=== PATIENT | female | born 1975 | race Caucasian/White ===

== ENCOUNTER 2017-04-25 08:34 | Emergency (ER) | payer OTHER ==
[~2017-04-25] VITALS: Ht 157.5 cm; Wt 53.0 kg
[~2017-04-25 08:34] MED LIST: ACET-2047 PO; BENZ100C70 PO; CYCL-319 PO; GUAI-637; IBUP-1542 PO; NAPR-260 PO; PROM6.25 PO
[2017-04-25 08:44] VITALS: Ht 157.5 cm; Wt 53.0 kg
[2017-04-25] MEDS ORDERED: KETOROLAC 30 MG INJ IV STA (09:25)
[2017-04-25] MEDS ORDERED: ONDANSETRON 4 MG INJ IV STA (09:25)
[2017-04-25] MEDS ORDERED: SOD CHLORIDE 0.9% 1,000 ML IV STA (09:25)
[2017-04-25 10:20] LABS: BASOPHIL # 0.1 10^3/ul (0.0-0.1); BASOPHILS % 0.8 % (0.0-2.0); EOSINOPHILS # 0.1 10^3/ul (0.0-0.5); EOSINOPHILS % 2.1 % (0.0-7.0); HEMATOCRIT 34.2 % (37.0-47.0); HEMOGLOBIN 10.5 g/dl (12.0-16.0); LYMPHOCYTES # 2.1 10^3/ul (0.8-2.9); LYMPHOCYTES % 34.1 % (15.0-51.0); MEAN CORPUSCULAR HEMOGLOBIN 23.5 pg (29.0-33.0); MEAN CORPUSCULAR HGB CONC 30.7 g/dl (32.0-37.0); MEAN CORPUSCULAR VOLUME 76.5 fl (82.0-101.0); MEAN PLATELET VOLUME 9.5 fl (7.4-10.4); MONOCYTE # 0.4 10^3/ul (0.3-0.9); MONOCYTES % 6.6 % (0.0-11.0); NEUTROPHILS % 56.2 % (39.0-77.0); PLATELET COUNT 386 10^3/UL (140-415); RED BLOOD COUNT 4.47 10^6/ul (4.20-5.40); RED CELL DISTRIBUTION WIDTH 16.6 % (11.5-14.5); WHITE BLOOD COUNT 6.2 10^3/ul (4.8-10.8)
[2017-04-25 10:32] LABS: ADD UMIC YES; UR ASCORBIC ACID NEGATIVE (NEGATIVE); UR BILIRUBIN (Dip) NEGATIVE (NEGATIVE); UR BLOOD (Dip) 2+ mg/dL (NEGATIVE); UR CLARITY CLEAR (CLEAR); UR COLOR YELLOW (YELLOW); UR GLUCOSE (Dip) NEGATIVE (NEGATIVE); UR KETONES (Dip) NEGATIVE (NEGATIVE); UR LEUKOCYTE ESTERASE (Dip) NEGATIVE Leu/ul (NEGATIVE); UR NITRITE (Dip) NEGATIVE (NEGATIVE); UR RBC 1 /HPF (0-5); UR SPECIFIC GRAVITY (Dip) 1.013 (1.003-1.030); UR TOTAL PROTEIN (Dip) NEGATIVE (NEGATIVE); UR UROBILINOGEN (Dip) NEGATIVE (NEGATIVE)
[2017-04-25 10:37] LABS: UR BACTERIA FEW /HPF (NONE SEEN); UR MUCUS FEW /HPF (NONE SEEN)
[2017-04-25 10:38] LABS: ALBUMIN 4.5 g/dl (3.3-4.9); ALBUMIN/GLOBULIN RATIO 1.18; BILIRUBIN,INDIRECT 0.2 mg/dl (0-1.1); BILIRUBIN,TOTAL 0.2 mg/dl (0.2-1.3); CALCIUM 8.9 mg/dl (8.4-10.2); CREATININE 0.53 mg/dl (0.44-1.00); POTASSIUM 4.2 mmol/L (3.5-5.1); TOTAL PROTEIN 8.3 g/dl (6.1-8.1)
--- NOTE | 2017-04-25 11:42 | RADRPT ---
PROCEDURE: CT abdomen and pelvis without contrast. CLINICAL INDICATION: pelvic pain, hematuria TECHNIQUE: CT scan of the abdomen and pelvis without contrast was performed on a multi-slice CT [facility]. The patient was scanned without intravenous contrast. 3-D sagittal and coronal reformatted images were obtained from the axial source images. CTDI: 5.93 and DLP: 298.94 One or more of the following post reduction techniques were used: Automated exposure control. Adjustment of the mA and/or kV according to patient's size. Use of iterative reconstruction technique. COMPARISON: None. FINDINGS: Incidental images through the lung bases reveal no evidence of focal basilar consolidation or pleura l effusion. The liver, spleen, gallbladder, pancreas and adrenal glands are unremarkable for noncontrast study. The kidneys are bilaterally symmetrical without evidence of hydronephrosis. There is no evidence o f obstructive uropathy. No significant retroperitoneal adenopathy is identified. Calcified mesenteric lymph nodes are seen, likely related to previous granulomatous disease. Atherosclerotic changes are seen in the abdominal aorta without evidence of aneurysm. The stomach is grossly unremarkable. There is no evidence of small bowel obstruction, appendicitis or diverticulitis. No free fluid or free intraperitoneal air is identified. Evaluation of the osse ous structures reveals no acute change. There is a 2 cm right ovarian cyst. IMPRESSION: 1. A 2 cm right ovarian cyst is present. 2. Calcified mesenteric lymph nodes are seen, likely related to previous granulomatous disease. 3. No evidence of obstructive uropathy, appendicitis, diverticulitis or bowel obstruction. RPTAT:AAJJ Physician Hammad Date Time Electronically viewed and signed by Physician Hammad on 04/25/2017 11:42 JOSIAS/
--- NOTE | 2017-04-25 11:43 | RADRPT ---
PROCEDURE: US Pelvis. CLINICAL INDICATION: Pelvic pain, vaginal bleeding TECHNIQUE: Multiple sonographic images of the pelvis were obtained utilizing a transabdominal and endovaginal technique. The images were reviewed on a PACS workstation. COMPARISON: None. FINDINGS: The uterus is visualized and measures 3.7 x 5.1 x 6.8 cm. The endometrial echo complex is normal and measures 4.0 mm . The right ovary measures 1.6 x 1.8 x 2.8 cm The left ovary measures 1.8 x 2.5 x 2.4 cm. There is a simple cyst in the right ovary measuring 2.1 cm. There is normal vascular flow to both ovaries. No adnexal masses or free fluid is identified. IMPRESSION: 1. Simple right ovarian cyst measuring 2.1 cm. 2. Otherwise, no significant abnormalities are identified. RPTAT:AAJJ Physician Hammad Date Time Electronically viewed and signed by Physician Hammad on 04/25/2017 11:43 /
[2017-04-25] MEDS ORDERED: IBUP400T22 PO (11:58)
[2017-04-25] MEDS ORDERED: TRAM50TA2 PO (11:58)
[2017-04-25] MEDS ORDERED: FER325 PO (11:59)
--- NOTE | 2017-04-25 12:17 | ERD ---
ER Documentation Chief Complaint Date/Time DATE: 04/25/17 TIME: 12:09 Chief Complaint HEADCAHE , VOMITING , VAG BLEED X 3 DAYS HPI This is a 42-year-old female presenting to emergency department for headache, Vaginal bleeding and pelvic pain 3 days.Patient states she noticed vaginal bleeding that has gotten heavier over the last 3 days. Patient also reports pelvic pain. Patient rates pain 6/10 to suprapubic area.No back or flank pain. Patient's last menstrual period April 08, 2017. Patient has had nausea however no vomiting or diarrhea. No constipation. Patient is also had headache for the past 3 days. No weakness, change in vision, blurry vision or loss of vision. ROS All systems reviewed and are negative except as per history of present illness. Medications Home Meds Active Scripts Ferrous Sulfate* (Ferrous Sulfate*) 325 Mg Tabec, 325 MG PO DAILY, #30 TAB Prov:DIMITRIOS SIMENTAL NP 04/25/17 Tramadol HCl (Tramadol HCl) 50 Mg Tablet, 50 MG PO Q4 Y for PAIN, #20 TAB Prov:DIMITRIOS SIMENTAL NP 04/25/17 Ibuprofen* (Motrin*) 400 Mg Tab, 400 MG PO Q6, #30 TAB Prov:DIMITRIOS SIMENTAL NP 04/25/17 Cyclobenzaprine Hcl* (Cyclobenzaprine Hcl*) 10 Mg Tablet, 10 MG PO BID, #10 TAB Prov:KOKI MONCADA PA-C 05/02/16 Naproxen* (Naprosyn*) 500 Mg Tablet, 500 MG PO BID Y for PAIN AND/OR INFLAMMATION, #30 TAB Prov:KOKI MONCADA PA-C 05/02/16 Acetaminophen* (Acetaminophen*) 650 Mg Tablet, 650 MG PO Q4H Y for PAIN AND OR ELEVATED TEMP, #15 TAB Prov:CHO,PAYAM 02/01/15 Ibuprofen* (Ibuprofen*) 600 Mg Tablet, 600 MG PO Q6 for PAIN, #15 TAB Prov:CHO,PAYAM 02/01/15 Promethazine w/Codeine* (Phenergan w/Codeine* Syrup) 5 Ml Syrup, 5 ML PO Q4H Y for COUGH, #4 OZ Prov:CHO,PAYAM 02/01/15 Benzonatate* (Tessalon Perle*) 100 Mg Capsule, 200 MG PO Q8H Y for COUGH, #21 CAP Prov:DELILAH HIDALGOA 02/01/15 Reported Medications Guaifenesin* (Robitussin*) 100 Mg/5 Ml Syrup 11/03/10 Allergies Allergies: Coded Allergies: No Known Drug Allergies (Verified Allergy, Mild, 02/01/15) PMhx/Soc Medical and Surgical Hx: pt denies Surgical Hx History of Surgery: No Anesthesia Reaction: No Hx Neurological Disorder: Yes (Vertigo) Hx Respiratory Disorders: No Hx Cardiac Disorders: No Hx Psychiatric Problems: No Hx Miscellaneous Medical Probl: Yes (Pre-DM, high cholesterol, anemia) Hx Alcohol Use: No Hx Substance Use: No Hx Tobacco Use: No Physical Exam Vitals Vital Signs Date Time Temp Pulse Resp B/P Pulse Ox O2 Delivery O2 Flow Rate FiO2 04/25/17 08:44 98.5 80 18 111/59 98 Physical Exam Const: alert, no acute distress Head: Atraumatic Eyes: Normal Conjunctiva ENT: Normal External Ears, Nose and Mouth. Neck: Full range of motion..~ No meningismus. Resp: Clear to auscultation bilaterally Cardio: Regular rate and rhythm, no murmurs Abd: Soft, suprapubic tenderness, non distended. Normal bowel sounds Skin: No petechiae or rashes Back: No midline or flank tenderness. No CVA tenderness. Ext: No cyanosis, or edema Neur: Awake and alert Psych: Normal Mood and Affect Result Diagram: 04/25/17 0943 04/25/17 0943 Results 24 hrs Laboratory Tests Test 04/25/17 09:43 White Blood Count 6.210^3/ul Red Blood Count 4.4710^6/ul Hemoglobin 10.5g/dl Hematocrit 34.2% Mean Corpuscular Volume 76.5fl Mean Corpuscular Hemoglobin 23.5pg Mean Corpuscular Hemoglobin Concent 30.7g/dl Red Cell Distribution Width 16.6% Platelet Count 45993^3/UL Mean Platelet Volume 9.5fl Neutrophils % 56.2% Lymphocytes % 34.1% Monocytes % 6.6% Eosinophils % 2.1% Basophils % 0.8% Nucleated Red Blood Cells % 0.0/100WBC Neutrophils # (Manual) 3.510^3/ul Lymphocytes # 2.110^3/ul Monocytes # 0.410^3/ul Eosinophils # 0.110^3/ul Basophils # 0.110^3/ul Nucleated Red Blood Cells # 0.010^3/ul Urine Color YELLOW Urine Clarity CLEAR Urine pH 5.0 Urine Specific Arminto 1.013 Urine Ketones NEGATIVEmg/dL Urine Nitrite NEGATIVEmg/dL Urine Bilirubin NEGATIVEmg/dL Urine Urobilinogen NEGATIVEmg/dL Urine Leukocyte Esterase NEGATIVELeu/ul Urine Microscopic RBC 1/HPF Urine Microscopic WBC 1/HPF Urine Bacteria FEW/HPF Urine Mucus FEW/HPF Urine Hemoglobin 2+mg/dL Urine Glucose NEGATIVEmg/dL Urine Total Protein NEGATIVEmg/dl Sodium Level 143mmol/L Potassium Level 4.2mmol/L Chloride Level 106mmol/L Carbon Dioxide Level 24mmol/L Anion Gap 17 Blood Urea Nitrogen 7mg/dl Creatinine 0.53mg/dl Glucose Level 87mg/dl Calcium Level 8.9mg/dl Total Bilirubin 0.2mg/dl Direct Bilirubin 0.00mg/dl Indirect Bilirubin 0.2mg/dl Aspartate Amino Transf (AST/SGOT) 23IU/L Alanine Aminotransferase (ALT/SGPT) 27IU/L Alkaline Phosphatase 90IU/L Total Protein 8.3g/dl Albumin 4.5g/dl Globulin 3.80g/dl Albumin/Globulin Ratio 1.18 Lipase 104U/L Current Medications Medications (Trade) Dose Ordered Sig/Madeleine Route PRN Reason Start Time Stop Time Status Last Admin Dose Admin Sodium Chloride (NS) 1,000 ml @ 1,000 mls/hr Q1H STAT IV 04/25/17 09:25 04/25/17 10:24 DC 04/25/17 09:51 Ondansetron HCl (Zofran Inj) 4 mg ONCE STAT IV 04/25/17 09:25 04/25/17 09:27 DC 04/25/17 09:52 Ketorolac Tromethamine (Toradol) 30 mg ONCE STAT IV 04/25/17 09:25 04/25/17 09:27 DC 04/25/17 09:52 Procedures/[place] [id number] Radiology Main Line: [phone] DIAGNOSTIC IMAGING REPORT Patient: PEÑA REYNOLDS : 1975 Age: 42 Sex: F MR #: [id number] DOS: 04/25/17 0925 Ordering MD: DIMITRIOS SIMENTAL NP Location: [facility] Room/Bed: PROCEDURE: US Pelvis. CLINICAL INDICATION: Pelvic pain, vaginal bleeding TECHNIQUE: Multiple sonographic images of the pelvis were obtained utilizing a transabdominal and endovaginal technique. The images were reviewed on a PACS workstation. COMPARISON: None. FINDINGS: The uterus is visualized and measures 3.7 x 5.1 x 6.8 cm. The endometrial echo complex is normal and measures 4.0 mm . The right ovary measures 1.6 x 1.8 x 2.8 cm The left ovary measures 1.8 x 2.5 x 2.4 cm. There is a simple cyst in the right ovary measuring 2.1 cm. There is normal vascular flow to both ovaries. No adnexal masses or free fluid is identified. IMPRESSION: 1. Simple right ovarian cyst measuring 2.1 cm. 2. Otherwise, no significant abnormalities are identified. [place] [id number] Radiology Main Line: [phone] DIAGNOSTIC IMAGING REPORT Patient: PEÑA REYNOLDS : 1975 Age: 42 Sex: F MR #: [id number] DOS: 04/25/17 1034 Ordering MD: DIMITRIOS SIMENTAL NP Location: [facility] Room/Bed: PROCEDURE: CT abdomen and pelvis without contrast. CLINICAL INDICATION: pelvic pain, hematuria TECHNIQUE: CT scan of the abdomen and pelvis without contrast was performed on a multi-slice CT scanner. The patient was scanned without intravenous contrast. 3-D sagittal and coronal reformatted images were obtained from the axial source images. CTDI: 5.93 and DLP: 298.94 One or more of the following post reduction techniques were used: Automated exposure control. Adjustment of the mA and/or kV according to patient's size. Use of iterative reconstruction technique. COMPARISON: None. FINDINGS: Incidental images through the lung bases reveal no evidence of focal basilar consolidation or pleural effusion. The liver, spleen, gallbladder, pancreas and adrenal glands are unremarkable for noncontrast study. The kidneys are bilaterally symmetrical without evidence of hydronephrosis. There is no evidence of obstructive uropathy. No significant retroperitoneal adenopathy is identified. Calcified mesenteric lymph nodes are seen, likely related to previous granulomatous disease. Atherosclerotic changes are seen in the abdominal aorta without evidence of aneurysm. The stomach is grossly unremarkable. There is no evidence of small bowel obstruction, appendicitis or diverticulitis. No free fluid or free intraperitoneal air is identified. Evaluation of the osseous structures reveals no acute change. There is a 2 cm right ovarian cyst. IMPRESSION: 1. A 2 cm right ovarian cyst is present. 2. Calcified mesenteric lymph nodes are seen, likely related to previous granulomatous disease. 3. No evidence of obstructive uropathy, appendicitis, diverticulitis or bowel obstruction. MDM: This is a 42-year-old female presenting to the emergency department with pelvic pain, vaginal bleeding and headache 3 days. Patient is afebrile upon arrival to ED and vital signs are stable. CBC shows hemoglobin 10.5 otherwise unremarkable. CMP shows no significant electrolyte imbalance. Normal liver enzymes. Normal bilirubin. UA reveals 2+ Hgb otherwise negative leukocyte eserase, nitrite, ketones and bilirubin. Urine is negative. IV access obtained and patient given Toradol and Zofran via IV. Pelvic ultrasound reviewed by radiologist as simple right ovarian cyst measuring 2.1 cm. Otherwise no significant arm abnormalities are identified. CT abdomen and pelvis reviewed by radiologist as 2 cm right ovarian cyst. No evidence of obstructive uropathy, appendicitis, diverticulitis or bowel obstruction. Upon reassessment, patient states pain has improved. Differential diagnosis includes but not limited to ovarian cyst, ruptured ovarian cyst, UTI or pyelonephritis. Patient is appropriate for outpatient management. Patient will be given prescription for ibuprofen 400 mg #30, tramadol 50 mg #20 and ferrous sulfate 325 mg #30. Instructed patient to follow-up with primary care provider in the next 2-3 days for reassessment and additional management. Return to ED sooner for any high fever, chest pain, difficulty breathing, shortness breath, wheezing , vomiting, diarrhea, abdominal pain or any new or worsening symptoms. Patient verbalizes understanding. All questions answered at discharge. Departure Diagnosis: Primary Impression: Ovarian cyst Laterality: right Qualified Code: N83.201 - Cyst of right ovary Condition: Stable Patient Instructions: What Are Ovarian Cysts?, Ovarian Cyst Referrals: [facility] Usted se strong hecho un examen mdico de control que le indica que no est en gui condicin que requiera tratamiento urgente en el Departamento de Emergencia. Un estudio ms profundo y el tratamiento de norton condicin pueden esperar sin ningn riesgo hasta que usted sea atendida/o en el consultorio de norton mdico o gui cl stewart. Es responsabilidad suya arreglar gui miki para el seguimiento del graham. MANEJO DE CONDICIONES NO URGENTES EN EL FUTURO 1) Si usted tiene un mdico de atencin primaria: Usted debera llamar a norton mdico de atencin primaria antes de venir al departamento de emergencia. Despus de las horas de consultorio, norton doctor o norton asociado/a est disponible por telfono. El mdico o enfermero de ben en el servicio telefnico puede asesorarle por isabella medio para atender el problema, o graham contrario se puede programar gui miki. 2) Si usted no tiene un mdico de atencin primaria: Llame al mdico o clnica de referencia que aparece abajo [place] las horas de consultorio para hacer gui miki para que le vean. CLINICAS: [facility] [phone] [address] [facility] [phone] [address] [facility]. [facility] [phone] [address] [facility]. [facility] [phone] [address] [facility] [place] [id number] [phone] [facility]. [phone] [facility] () Usted se strong hecho un examen mdico de control que le indica que no est en gui condicin que requiera tratamiento urgente en el Departamento de Emergencia. Un estudio ms profundo y el tratamiento de norton condicin pueden esperar sin ningn riesgo hasta que usted sea atendida/o en el consultorio de norton mdico o gui cl stewart. Es responsabilidad suya arreglar gui miki para el seguimiento del graham. MANEJO DE CONDICIONES NO URGENTES EN EL FUTURO 1) Si usted tiene un mdico de atencin primaria: Usted debera llamar a norton mdico de atencin primaria antes de venir al departamento de emergencia. Despus de las horas de consultorio, norton doctor o norton asociado/a est disponible por telfono. El mdico o enfermero de ben en el servicio telefnico puede asesorarle por isabella medio para atender el problema, o [place]ham contrario se puede programar gui miki. 2) Si usted no tiene un mdico de atencin primaria: Llame al mdico o condado institucions de referencia que aparece abajo [place] las horas de consultorio para hacer gui miki para que le vean. SI USTED NO PUEDE PAGAR PARA MIK UN MEDICO puede ir a: [facility] [address] [place] [address] [facility] [address] [place] [address] [facility] [address] [place] [address] [facility] [address] [place], [place] [id number] Additional Instructions: Llame al doctor MAANA y yesenia gui MIKI PARA DENTRO DE 2-3 CARSON.Dgale a la secretaria que nosotros le instruimos hacer esta miki.Avise o llame si norton condicin se empeora antes de la miki. Regresa aqui si peor o no mejor. Regresar a ED por fiebre daja, dolor en el pecho, dificultad para respirar, respiracin entrecortada, sibilancias, vmitos, diarrea, dolor abdominal o cualquier sntoma nuevo o que empeora. DIMITRIOS SIMENTAL NP Apr 25, 2017 12:16
== END 2017-04-25 12:12 | disposition home or self-care (01) ==
LOC: FTE 08:34
DX: N83.201 Unspecified ovarian cyst, right side (principal); R10.2 Pelvic and perineal pain
CPT/HCPCS: 36415; 74176; 76830; 76856; 80053; 81001; 83690; 85025; 96374; 96375; J1885; J2405; J7030; Z7502

== ENCOUNTER 2017-06-01 17:49 | Emergency (ER) | payer OTHER ==
[~2017-06-01] VITALS: Wt 56.0 kg
[~2017-06-01 17:49] MED LIST changes: +FER325 PO; +IBUP400T22 PO; +TRAM50TA2 PO
[2017-06-01] MEDS ORDERED: ELIM TOP (19:49)
--- NOTE | 2017-06-01 20:09 | ERA ---
ER Documentation Chief Complaint Date/Time DATE: 06/01/17 TIME: 20:04 Chief Complaint rash . no sob HPI 42-year-old female presenting with a chief complaint of has had a rash 3 days. No sick contacts. Describes a rash is pruritic and over the extremities and waistband. Symptoms are worse at night. No symptoms like this in the past. Patient denies fever, chills, recent antibiotic use, symptomatic close contacts , diabetes, skin opening or bite, or rapid progression of symptoms. Vaccination status up-to-date. Patient has no other complaints and describes no other associated manifestations. No medications to relieve the symptoms. No aggravating or alleviating factors. Nursing notes have been reviewed and are consistent with history given. ROS All systems reviewed and are negative except as per history of present illness. Medications Home Meds Active Scripts Permethrin* (Elimite*) 5% Cr, 1 APPLIC TOP ONCE for 1 Day, TUB Prov:ARMANDO ABRAHAM PA-C 06/01/17 Ferrous Sulfate* (Ferrous Sulfate*) 325 Mg Tabec, 325 MG PO DAILY, #30 TAB Prov:DIMITRIOS SIMENTAL NP 04/25/17 Tramadol HCl (Tramadol HCl) 50 Mg Tablet, 50 MG PO Q4 Y for PAIN, #20 TAB Prov:DIMITRIOS SIMENTAL NP 04/25/17 Ibuprofen* (Motrin*) 400 Mg Tab, 400 MG PO Q6, #30 TAB Prov:DIMITRIOS SIMENTAL NP 04/25/17 Cyclobenzaprine Hcl* (Cyclobenzaprine Hcl*) 10 Mg Tablet, 10 MG PO BID, #10 TAB Prov:KOKI MONCADA PA-C 05/02/16 Naproxen* (Naprosyn*) 500 Mg Tablet, 500 MG PO BID Y for PAIN AND/OR INFLAMMATION, #30 TAB Prov:KOKI MONCADA PA-C 05/02/16 Acetaminophen* (Acetaminophen*) 650 Mg Tablet, 650 MG PO Q4H Y for PAIN AND OR ELEVATED TEMP, #15 TAB Prov:CHO,PAYAM 02/01/15 Ibuprofen* (Ibuprofen*) 600 Mg Tablet, 600 MG PO Q6 for PAIN, #15 TAB Prov:CHO,PAYAM 02/01/15 Promethazine w/Codeine* (Phenergan w/Codeine* Syrup) 5 Ml Syrup, 5 ML PO Q4H Y for COUGH, #4 OZ Prov:CHOPAYAM 02/01/15 Benzonatate* (Tessalon Perle*) 100 Mg Capsule, 200 MG PO Q8H Y for COUGH, #21 CAP Prov:CHO,PAYAM 02/01/15 Reported Medications Guaifenesin* (Robitussin*) 100 Mg/5 Ml Syrup 11/03/10 Allergies Allergies: Coded Allergies: No Known Drug Allergies (Verified Allergy, Mild, 02/01/15) PMhx/Soc History of Surgery: No Anesthesia Reaction: No Hx Neurological Disorder: Yes (Vertigo) Hx Respiratory Disorders: No Hx Cardiac Disorders: Yes (hyperlipids) Hx Psychiatric Problems: No Hx Miscellaneous Medical Probl: Yes (Pre-DM, anemia) Hx Alcohol Use: No Hx Substance Use: No Hx Tobacco Use: No Smoking Status: Never smoker Physical Exam Vitals Vital Signs Date Time Temp Pulse Resp B/P Pulse Ox O2 Delivery O2 Flow Rate FiO2 06/01/17 17:52 98.0 77 20 120/77 99 Physical Exam Const: Well-appearing 42-year-old female no acute distress Head: Atraumatic Eyes: Normal Conjunctiva ENT: Normal External Ears, Nose and Mouth. Neck: Full range of motion..~ No meningismus. Resp: Clear to auscultation bilaterally Cardio: Regular rate and rhythm, no murmurs Abd: Soft, non tender, non distended. Normal bowel sounds Skin: Less than 1 mm lesions in between the finger webs and on the forearms and by the ankles waistline. No burrows visualized. No discharge erythema or excoriation noted. Back: No midline or flank tenderness Ext: No cyanosis, or edema Neur: Awake and alert Psych: Normal Mood and Affect Procedures/MDM 42-year-old female presenting with chief complaint of rash 3 days as described in history and physical examination. Patient's signs and symptoms are most consistent with bedbugs versus scabies versus other pediculosis. Patient will be treated with permethrin. I have no suspicion for bacterial, fungal or systemic involvement at this time. Patient will be given discharge instructions return precautions. I have spoke with the patient regarding their condition and future management. They have verbally responded that they understand their status and treatment plan. The patients vitals are stable, and their current condition is appropriate for discharge. Departure Diagnosis: Primary Impression: Rash Additional Impression: Pediculosis Condition: Stable Patient Instructions: Bedbugs Additional Instructions: Jennie un seguimiento con norton PCP dentro de los prximos 1-3 adorno para gui evaluaci n ms completa y gui posible derivacin a un especialista. Devuelva el departamento de emergencia inmediatamente si los sntomas empeoran o cambian. Si tiene alguna pregunta con respecto a los medicamentos, consulte con norton farmac utico o con nosotros antes de salir. Si se producen reacciones adversas mientras marcus iker medicamentos, suspenda el tratamiento y regrese inmediatamente al servicio de urgencias. Salineno iker medicamentos segn las indicaciones y complete el curso completo del tratamiento. ARMANDO ABRAHAM PA-C Jun 01, 2017 20:09
== END 2017-06-01 19:58 | disposition home or self-care (01) ==
LOC: FTE 17:49
DX: R21 Rash and other nonspecific skin eruption (principal); B85.2 Pediculosis, unspecified
CPT/HCPCS: 99283